=== PATIENT | female | born 1980 | race Caucasian/White ===

== ENCOUNTER → 2016-11-26 | Outpatient (CLI) | payer OTHER ==
--- NOTE | 2016-11-26 09:10 | CT ---
EXAMINATION TYPE: CT cervical spine wo con DATE OF EXAM: 11/26/2016 9:02 AM COMPARISON: NONE HISTORY: Radiculopathy CT DLP: 624.4 mGycm Automated exposure control for dose reduction was used. TECHNIQUE: CT scan of the cervical spine is obtained without contrast, axial images are obtained, sa gittal and coronal reformatted images are also reviewed. FINDINGS: Visualized portions of the lungs are clear. Prevertebral soft tissues are normal. There is been a previous ACDF at C4, C5 and C6. Alignment is normal. Atlantoaxial relationships are n ormal. There is uncovertebral joint disease at C4-5 and C5-6. The facets are unremarkable. No fractur es are seen. No definite discal protrusion is seen. IMPRESSION: 1. NO ACUTE OSSEOUS LESION. 2. POSTSURGICAL CHANGE. 3. MILD DEGENERATIVE CHANGE.
== END | disposition home or self-care (01) ==
LOC: RADCTMAIN 08:46
PROVIDERS: ATTEND Neurological Surgery
DX: M47.22 Other spondylosis with radiculopathy, cervical region (principal); Z98.890 Other specified postprocedural states
CPT/HCPCS: 72125

== ENCOUNTER → 2016-12-06 | Outpatient (CLI) | payer OTHER ==
--- NOTE | 2016-12-06 08:44 | MR ---
MR lumbar spine wo con lsp radiculopathy, numbness in legs, mid to lower back Multiplanar, multiecho imaging of the lumbar spine was obtained without contrast on a 3 Brenda magnet. REFERENCE:None. FINDINGS: Paraspinal soft tissues are unremarkable. Vertebral body height and alignment are maintained. Cord signal is maintained. The conus ends normall y at the level of the T12-L1 disc. At T12-L1 and L1-2, no definite abnormality is seen. At L2-3, there are mild hypertrophic changes and capsulitis in the facets. At L3-4, there is moderate hypertrophic changes in the facets. At L4-5, there are moderate hypertrophic changes in the facets as well as capsulitis. At L5-S1, there is mild hypertrophic change within the facets. IMPRESSION: 1. NO SIGNIFICANT COMPRESSIVE DISCOPATHY OR NEURAL COMPRESSION. 2. MILD, DIFFUSE FACET ARTHROPATHY.
== END | disposition home or self-care (01) ==
LOC: RADMRIMAIN 07:14
PROVIDERS: ATTEND Neurological Surgery
DX: M46.96 Unspecified inflammatory spondylopathy, lumbar region (principal)
CPT/HCPCS: 72148

== ENCOUNTER → 2017-01-12 | Outpatient (CLI) | payer OTHER ==
--- NOTE | 2017-01-12 09:08 | MM ---
Reason for exam: screening (asymptomatic). Baseline mammogram. Physical Findings: Nurse did not find any significant physical abnormalities on exam. MG Screening Mammo w CAD Bilateral CC and MLO view(s) were taken. There are scattered fibroglandular densities. There is no discrete abnormality. These results were verbally communicated with the patient and result sheet given to the patient on 01/12/17. ASSESSMENT: Negative, BI-RAD 1 RECOMMENDATION: Routine screening mammogram of both breasts at age 40.
== END | disposition home or self-care (01) ==
LOC: RADMAMWWP 08:24
PROVIDERS: ATTEND Obstetrics & Gynecology
DX: Z12.31 Encounter for screening mammogram for malignant neoplasm of breast (principal)

== ENCOUNTER → 2020-07-11 | Outpatient (CLI) | payer OTHER ==
--- NOTE | 2020-07-12 22:17 | CT ---
EXAMINATION TYPE: CT cervical spine wo con DATE OF EXAM: 07/11/2020 COMPARISON: CT cervical spine 11/26/2016 HISTORY: [place], bilateral lower leg weakness CT DLP: 896.4 mGycm Automated exposure control for dose reduction was used. TECHNIQUE: CT scan of the cervical spine is obtained without contrast, axial images are obtained, sa gittal and coronal reformatted images are also reviewed. FINDINGS: Redemonstrated anterior fusion of C4, C5, and C6 with no evidence of hardware fracture or l oosening. There is straightening of the cervical lordosis. No acute fracture or dislocation. Vertebra l body heights are normal. Atlantoaxial relationship is normal. No high-grade canal stenosis. Uncover tebral hypertrophy and facet arthropathy with varying degrees of neural foraminal bony encroachment, with moderate to severe narrowing at C4-C5 bilaterally. Prevertebral soft tissue appears within [place]il[place] l limits. IMPRESSION: 1. No acute fracture or dislocation evident in the cervical spine. 2. Anterior fusion from C4 through C6 with no evidence of hardware failure. 3. Neural foramina narrowing, worst at C4-C5.
== END | disposition home or self-care (01) ==
LOC: RADCTMAIN 07:05
PROVIDERS: ATTEND Neurological Surgery
DX: M48.02 Spinal stenosis, cervical region (principal); M47.12 Other spondylosis with myelopathy, cervical region; M43.22 Fusion of spine, cervical region
CPT/HCPCS: 72125

== ENCOUNTER → 2022-03-16 | Outpatient (CLI) | payer OTHER ==
--- NOTE | 2022-03-18 07:30 | MM ---
Reason for Exam: Screening (asymptomatic). Last mammogram was performed 5 year(s) and 2 month(s) ago. Patient History: Menarche at age 12. First Full-Term at age 18. Left ovary removed at age 36. Right ovary removed at age 36. Hysterectomy at age 36. Postmenopausal. Patient has history of breast feeding. Maternal cousin had breast cancer under age 50. Risk Values: Evi 5 year model risk: 0.4%. NCI Lifetime model risk: 7.3%. Prior Study Comparison: 01/12/2017 Bilateral Screening Mammogram, [facility]. Tissue Density: There are scattered fibroglandular densities. Findings: Analyzed By CAD. There is no suspicious group of microcalcifications or new suspicious mass in either breast. No significant change from prior examination. Overall Assessment: Negative, BI-RAD 1 Management: Screening Mammogram of both breasts in 1 year. A clinical breast exam by your physician is recommended on an annual basis and results should be correlated with mammographic findings. Electronically signed and approved by: Juan Morris D.O.
== END | disposition home or self-care (01) ==
LOC: RADMAMWWP 13:51
PROVIDERS: ATTEND Family Medicine
DX: Z12.31 Encounter for screening mammogram for malignant neoplasm of breast (principal)
CPT/HCPCS: 77067

== ENCOUNTER → 2024-11-27 | Outpatient (CLI) | payer OTHER ==
[2024-11-27 14:57] LABS: Basophils # (A) 0.06 X 10*3/uL (0.00-0.10); Basophils % (A) 0.8 %; Eosinophils # (A) 0.33 X 10*3/uL (0.04-0.35); Eosinophils % (A) 4.6 %; HCT 40.9 % (37.2-46.3); Lymphocytes # (A) 2.42 X 10*3/uL (0.90-5.00); Lymphocytes % (A) 33.9 %; MCH 30.5 pg (27.0-32.0); MCHC 34.2 g/dL (32.0-37.0); MCV 89.1 FL (80.0-97.0); Mean Platelet Volume 11.4 FL (9.5-12.2); Monocytes # (A) 0.62 X 10*3/uL (0.20-1.00); Monocytes % (A) 8.7 %; NRBC Per 100 WBC 0 X 10*3/uL (0.00-0.01); Neutrophils # (A) 3.69 X 10*3/uL (1.80-7.70); Neutrophils % (A) 51.7 %; Platelet Count 259 X 10*3/uL (140-440); RBC 4.59 X 10*6/uL (4.10-5.20); RDW 12.9 % (11.5-14.5); WBC 7.14 X 10*3/uL (4.50-10.00)
[2024-11-27 15:35] LABS: ALT 47 U/L (8-44); AST 34 U/L (13-35); Albumin 4.1 g/dL (3.8-4.9); Albumin/Globulin Ratio 1.64 Ratio (1.60-3.17); Alkaline Phosphatase 81 U/L (41-126); BUN/Creat Ratio 20.43 Ratio (12.00-20.00); Blood Urea Nitrogen 14.3 mg/dL (9.0-27.0); Calcium 9.6 mg/dL (8.7-10.3); Carbon Dioxide 23.7 mmol/L (21.6-31.8); Chloride 106 mmol/L (96-109); Chol/HDL Ratio 4.72 Ratio; Globulin 2.5 g/dL (1.6-3.3); Glucose 98 mg/dL (70-110); LDL Cholesterol,Calculated 100.1 mg/dL (0.0-131.0); Potassium 4.2 mmol/L (3.5-5.5); Sodium 143 mmol/L (135-145); Total Bilirubin 0.7 mg/dL (0.3-1.2); Total Protein 6.6 g/dL (6.2-8.2)
== END | disposition home or self-care (01) ==
LOC: LABWHC1 09:11
PROVIDERS: ATTEND Family Medicine
DX: Z00.00 Encounter for general adult medical examination without abnormal findings (principal)
CPT/HCPCS: 36415; 80053; 80061; 84443; 85025

== ENCOUNTER → 2024-12-26 | Outpatient (CLI) | payer OTHER ==
--- NOTE | 2024-12-26 13:27 | MM ---
Reason for Exam: Screening (asymptomatic). Last mammogram was performed 2 year(s) and 9 month(s) ago. Patient History: Menarche at age 12. First Full-Term at age 18. Left ovary removed at age 36. Right ovary removed at age 36. Hysterectomy at age 36. Postmenopausal. Patient has history of breast feeding. Maternal cousin had breast cancer under age 50. Risk Values: Evi 5 year model risk: 0.6%. NCI Lifetime model risk: 7.1%. Prior Study Comparison: 01/12/2017 Bilateral Screening Mammogram, [facility]. 03/16/2022 Bilateral MG screening mammo w CAD, [facility]. Tissue Density: There are scattered areas of fibroglandular density. Findings: Analyzed By CAD. There is no suspicious group of microcalcifications or new suspicious mass in either breast. Overall Assessment: Negative, BI-RAD 1 Management: Screening Mammogram of both breasts in 1 year. . Patient should continue monthly self-breast exams. A clinical breast exam by your physician is recommended on an annual basis. This exam should not preclude additional follow-up of suspicious palpable abnormalities. Note on Evi scores and lifetime risk: 1. A Evi score greater than 3% is considered moderate risk. If this is the case, consider specialist referral to assess eligibility for a risk reducing agent. 2. If overall lifetime risk for the development of breast cancer is 20% or higher, the patient may qualify for future screening with alternating mammogram and breast MRI. [facility], , 12/26/2024 1:22 PM. Electronically signed and approved by: Meño Rodriguez M.D. Radiologis
== END | disposition home or self-care (01) ==
LOC: RADMAMWWP 13:00
PROVIDERS: ATTEND Family Medicine
DX: Z12.31 Encounter for screening mammogram for malignant neoplasm of breast (principal); R92.323 Mammographic fibroglandular density, bilateral breasts; Z78.0 Asymptomatic menopausal state; Z80.3 Family history of malignant neoplasm of breast
CPT/HCPCS: 77063; 77067